=== PATIENT | male | born 1955 | race Caucasian/White ===

== ENCOUNTER 2020-09-24 11:12 | Outpatient (CLI) | payer MEDICARE, SELFPAY ==
--- NOTE | ~2020-09-24 | XR_ITS ---
EXAMINATION: HAND-LARS ARTHRITIS 3+VIEWS DATE: 09/24/2020 11:38 INDICATION: Right hand pain. TECHNIQUE: Posteroanterior, lateral, and oblique views of the left and of the right hands as well as a ballcatchers view of both hands were obtained. COMPARISON: None. FINDINGS: Normal alignment at the bilateral hands and wrists. Old healed fracture of the right fifth metacarpal . No other fractures identified. Mild polyarticular osteoarthritis involving the left distal radiouln ar and bilateral triscaphe, first carpometacarpal and multiple bilateral metacarpophalangeal and inte rphalangeal joints characterized by mild nonuniform joint space narrowing and/or small marginal osteo phytes. No erosions to suggest an inflammatory arthritis. Soft tissues are unremarkable. IMPRESSION: 1. Relatively symmetric, typical pattern of mild polyarticular osteoarthritis at the bilateral hands. Reviewed, dictated and finalized at location B. UET CHEF IMPRESSION: 1. Relatively symmetric, typical pattern of mild polyarticular osteoarthritis a t the bilateral hands.
== END 2020-09-24 11:13 | disposition home or self-care (01) ==
PROVIDERS: PCP Family Medicine; Visit Provider Physician Assistant Medical
DX: M19.041 Primary osteoarthritis, right hand (principal); M19.042 Primary osteoarthritis, left hand
CPT/HCPCS: 73130

== ENCOUNTER 2022-01-28 11:53 | Outpatient (CLI) | payer MEDICARE, SELFPAY ==
[2022-01-28 13:31] LABS: Basophils Absolute Auto 0.1 K/mm3 (0.0-0.1); Basophils Percent Auto 0.9 % (0.2-1.2); Eosinophils Absolute Auto 0.1 K/mm3 (0-0.3); Eosinophils Percent Auto 1.5 % (0-4.4); Hematocrit 47.1 % (42.0-52.0); Hemoglobin 15.1 g/dL (14.0-18.0); Immature Granulocyte Absolute 0.03 K/mm3 (0.00-0.031); Immature Granulocyte Percent A 0.4 % (0-0.5); Lymphocytes Percent Auto 26.9 % (18.3-44.2); Mean Corpuscular HGB Conc 32.1 g/dl (32-36); Mean Corpuscular Hemoglobin 31.7 pg (26-34); Mean Corpuscular Volume 98.7 fl (80-100); Mean Platelet Volume 9.2 fl (7.4-10.4); Monocytes Absolute Auto 0.6 K/mm3 (0.1-0.6); Monocytes Percent Auto 8.3 % (2.6-8.5); Neutrophils Absolute Auto 4.6 K/mm3 (1.3-6.7); Platelet Count Result 304 k/mm3 (150-375); Red Blood Count 4.77 M/mm3 (4.6-6.20); Red Cell Distribution Width 14.5 % (11.5-14.5); White Blood Count 7.4 K/mm3 (4.5-10.0)
[2022-01-28 13:42] LABS: Alanine Aminotransferase 26 U/L (6-50); Alkaline Phosphatase 54 U/L (38-126); Amylase 88 U/L (30-110); Anion Gap 6 mmol/L (8-16); Aspartate Amino Transferase 26 U/L (17-59); Bilirubin,Total 0.5 mg/dL (0.2-1.3); Blood Urea Nitrogen 14 mg/dL (9-20); Calcium 8.7 mg/dL (8.4-10.2); Carbon Dioxide 28 mmol/L (22-30); Chloride 108 mmol/L (98-107); Estimated Glomerular Filt Rate > 60; Glucose 110 mg/dL (65-110); Lipase 77 U/L (23-300); Potassium 4.1 mmol/L (3.4-5.0); Sodium 142 mmol/L (137-145)
[2022-01-28 13:57] LABS: Add Urine Microscopic? NO; Appearance Urine Clear (Clear); Bilirubin Urine Negative (Negative); Blood Urine Negative (Negative); Color Urine Yellow (Yellow); Glucose Urine UA Negative (Negative); Ketones Urine Negative (Negative); Leukocyte Esterase Ur Negative LEU/UL (Negative); Nitrate Urine Negative (Negative); Protein Urine Negative (Negative); Urobilinogen Urine 0.2 mg/dL (<2.0); pH Urine 5.5 (5.0-9.0)
== END 2022-01-28 11:54 | disposition home or self-care (01) ==
LOC: ANHLAB 11:58
PROVIDERS: PCP Family Medicine; Visit Provider Nurse Practitioner Family
DX: R19.7 Diarrhea, unspecified (principal)
CPT/HCPCS: 36415; 80053; 81003; 82150; 83690; 85025

== ENCOUNTER 2022-01-29 11:18 | Outpatient (CLI) | payer MEDICARE, SELFPAY ==
[2022-01-29 12:53] LABS: Toxigenic C. Diff NEGATIVE (NEGATIVE)
== END 2022-01-29 11:19 | disposition home or self-care (01) ==
LOC: ANHLAB 11:19
PROVIDERS: PCP Family Medicine; Visit Provider Nurse Practitioner Family
DX: R19.7 Diarrhea, unspecified (principal)
CPT/HCPCS: 87045; 87177; 87209; 87427; 87493

== ENCOUNTER 2022-04-11 18:12 | Emergency (ER) | payer OTHER, MEDICARE, SELFPAY ==
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
--- NOTE | ~2022-04-11 | XR_ITS ---
XR elbow LT min 3V 04/11/2022 18:56 INDICATION: Left elbow pain PROCEDURE: 4 views left elbow COMPARISON: No prior studies for comparison. FINDINGS: Fracture, dislocation or subluxation is not identified. No significant joint effusion. The soft tissues appear within normal limits. No foreign bodies are identified. IMPRESSION: 1: NO ACUTE BONE OR JOINT ABNORMALITY IDENTIFIED. Reviewed, dictated and finalized at location A.
--- NOTE | ~2022-04-11 | XR_ITS ---
XR finger 1st RT min 2V 04/11/2022 18:57 Indication: Right first finger pain. Procedure: 3 views left first finger Comparison: No prior studies for comparison. Findings: Polyarticular osteoarthritis. No acute fracture. Small radiodensities are identified ventra l to the distal phalanx on the lateral view, possibly foreign bodies. Impression: 1: Punctate radiodensities adjacent to the first distal phalanx, possibly foreign bodies. 2: Moderate polyarticular osteoarthritis. Reviewed, dictated and finalized at location A. Impression: 1: Punctate radiodensities adjacent to the first distal phalanx, possibly forei gn bodies. 2: Moderate polyarticular osteoarthritis.
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
[2022-04-11 18:25] VITALS: BP 150/94; PULSE 73; RESP 20; TEMP 37; O2SAT 99
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
[2022-04-11] MEDS: TETANUS,DIPHTHERIA,AC PERTUSSIS ADULT (0.5 ML) BOOSTRIX IM (18:55)
[2022-04-11 19:10] LABS: Basophils Absolute Auto 0.1 K/mm3 (0.0-0.1); Basophils Percent Auto 0.9 % (0.2-1.2); Eosinophils Absolute Auto 0.1 K/mm3 (0-0.3); Eosinophils Percent Auto 0.9 % (0-4.4); Hematocrit 46.3 % (42.0-52.0); Hemoglobin 14.7 g/dL (14.0-18.0); Immature Granulocyte Absolute 0.04 K/mm3 (0.00-0.031); Immature Granulocyte Percent A 0.5 % (0-0.5); Lymphocytes Percent Auto 26.1 % (18.3-44.2); Mean Corpuscular HGB Conc 31.7 g/dl (32-36); Mean Corpuscular Hemoglobin 30.7 pg (26-34); Mean Corpuscular Volume 96.7 fl (80-100); Mean Platelet Volume 8.7 fl (7.4-10.4); Monocytes Absolute Auto 0.7 K/mm3 (0.1-0.6); Monocytes Percent Auto 9.2 % (2.6-8.5); Neutrophils Absolute Auto 4.8 K/mm3 (1.3-6.7); Neutrophils Percent Auto 62.4 % (45.5-73.1); Platelet Count Result 296 k/mm3 (150-375); Red Blood Count 4.79 M/mm3 (4.6-6.20); Red Cell Distribution Width 14.1 % (11.5-14.5); White Blood Count 7.7 K/mm3 (4.5-10.0)
[2022-04-11 19:20] LABS: Alanine Aminotransferase 27 U/L (6-50); Albumin Level 4.3 g/dL (3.5-5.1); Alkaline Phosphatase 57 U/L (38-126); Anion Gap 11 mmol/L (8-16); Aspartate Amino Transferase 24 U/L (17-59); Bilirubin,Total 0.4 mg/dL (0.2-1.3); Blood Urea Nitrogen 18 mg/dL (9-20); Calcium 8.8 mg/dL (8.4-10.2); Carbon Dioxide 26 mmol/L (22-30); Chloride 106 mmol/L (98-107); Estimated Glomerular Filt Rate > 60; Glucose 151 mg/dL (65-110); Potassium 4.1 mmol/L (3.4-5.0); Sodium 143 mmol/L (137-145)
[2022-04-11 19:22] LABS: Ethanol < 10 mg/dL (<10); Partial Thromboplastin Time 26.4 SECONDS (22.3-36.8)
== END 2022-04-11 22:02 | disposition home or self-care (01) ==
PROVIDERS: Physician Assistant; Emergency Provider Emergency Medicine; PCP Family Medicine
DX: S09.90XA Unspecified injury of head, initial encounter (principal); S00.81XA Abrasion of other part of head, initial encounter; S41.102A Unspecified open wound of left upper arm, initial encounter; S81.802A Unspecified open wound, left lower leg, initial encounter; Z23 Encounter for immunization; E66.01 Morbid (severe) obesity due to excess calories; Z87.891 Personal history of nicotine dependence; Z79.82 Long term (current) use of aspirin; Z79.899 Other long term (current) drug therapy; M19.041 Primary osteoarthritis, right hand; V03.10XA Pedestrian on foot injured in collision with car, pick-up truck or van in traffic accident, initial encounter
CPT/HCPCS: 36415; 70450; 71260; 72125; 72129; 72132; 73080; 73140; 73564; 74177; 80053; 80307; 85025; 85610; 85730; 86850; 86900; 86901; 90471; 90715; 96374; 99284; J0131; Q9967

== ENCOUNTER 2022-08-17 08:23 | Outpatient (CLI) | payer MEDICARE, SELFPAY ==
--- NOTE | ~2022-08-17 | NM_ITS ---
EXAMINATION: NM dudley stress w perfusion DATE: 08/17/2022 11:28 INDICATION: Paroxysmal atrial fibrillation TECHNIQUE: Rest images were obtained following intravenous administration of 10.4 mCi Tc99m tetrofosm in (Myoview). The patient was infused intravenously with Lexiscan (Regadenoson). Then, 32.4 mCi Tc99m tetrofosmin (Myoview) was administered intravenously, and stress images were obtained. Data was ssuan nstructed into short axis and horizontal and vertical long axis SPECT images. Gated SPECT images were also obtained. COMPARISON: None. FINDINGS: There is no definite reversible or fixed perfusion abnormality to suggest ischemia or infar ction. There is normal left ventricular chamber size, wall motion and ejection fraction. Left ventr icular ejection fraction measures 55%. IMPRESSION: 1. Normal myocardial perfusion at rest and during stress. 2. Left ventricular ejection fraction measuring 55%. Reviewed, dictated and finalized at location B. [employer] DIRECTOR
--- NOTE | 2022-08-17 08:07 | EST_ITS ---
Patient Info Name: Emmanuel Lilly Age: 67 years : 1955 Gender: Male Ht: 72 in Wt: 290 lbs BSA: 2.64 m2 HR: 55 bpm BP: 154 / 88 mmHg Heart Rhythm: Sinus Rhythm Exam Date: 08/17/2022 9:16 AM Exam Location: [facility], [place] Stress Patient Status: Outpatient Admit Date: 08/17/2022 Staff Ordering Physician: Benton Rodriguez DO Attending Provider: Benton Rodriguez DO Exercise Technologist: Kelsie Moore CT Exercise Physician: Benton Rodriguez DO Exam Type: CA stress dudley w NM Study Info Indications I48.0 - Paroxysmal atrial fibrillation A regadenoson stress test was performed. Summary 1. 1. Negative lexiscan stress test for ischemic ST changes by ECG criteria. 2. 2. Baseline hypertension. 3. 3. Nuclear scan to follow and will be reported separately. Please correlate with it. 4. 4. Patient informed of the above results. Protocol: Lexiscan Stress ECG Details Stage: REST Duration (min): 2 min : 15 sec HR (bpm): 56 SBP (mmHg): 154 DBP (mmHg): 88 Stage: REST Duration (min): 9 min : 57 sec HR (bpm): 56 SBP (mmHg): 154 DBP (mmHg): 88 Stage: STAGE 1 Duration (min): 0 min : 59 sec HR (bpm): 68 SBP (mmHg): 199 DBP (mmHg): 101 Stage: RECOVERY Duration (min): 1 min : 0 sec HR (bpm): 70 SBP (mmHg): 199 DBP (mmHg): 101 Stage: RECOVERY Duration (min): 2 min : 0 sec HR (bpm): 71 SBP (mmHg): 199 DBP (mmHg): 101 Stage: RECOVERY Duration (min): 3 min : 0 sec HR (bpm): 69 SBP (mmHg): 199 DBP (mmHg): 101 Stage: RECOVERY Duration (min): 3 min : 25 sec HR (bpm): 67 SBP (mmHg): 157 DBP (mmHg): 95 Rest HR: 56 bpm Peak HR: 75 bpm Rest Sys BP: 154 mmHg Peak Sys BP: 199 mmHg Max Pred HR: 151 bpm % Max Pred HR: 50 % Target HR: 128 bpm Max RPP: 14,925 bpm*mmHg Termination Reason: Completed protocol Cardiac Symptoms: Shortness of breath Total Time: 1 min : 0 sec Rest Massey BP: 88 mmHg Peak Massey BP: 101 mmHg Total Dose: 0.4 mg Resting ECG Sinus bradycardia, first degree AV block, RBBB, PVC's. Stress ECG No ST changes. Arrhythmias None. Report Signatures
== END 2022-08-17 08:24 | disposition home or self-care (01) ==
PROVIDERS: PCP Family Medicine; Visit Provider Internal Medicine Cardiovascular Disease
DX: I48.0 Paroxysmal atrial fibrillation (principal)
CPT/HCPCS: 78452; 93017; A9502; J2785

== ENCOUNTER 2024-05-03 11:14 | Outpatient (CLI) | payer MEDICARE, SELFPAY ==
--- NOTE | ~2024-05-03 | XR_ITS ---
EXAMINATION: XR shoulder RT min 2V DATE: 05/03/2024 11:37 INDICATION: Right shoulder pain. TECHNIQUE: 5 views of right shoulder were obtained. COMPARISON: None. FINDINGS: Alignment is normal. No fracture. There is mild osteoarthritis of glenohumeral joint. There is mild osteoarthritis of acromioclavicular joint with loose body. There are changes of anterior fus ion procedure in cervical spine. IMPRESSION: 1. Polyarticular osteoarthritis. Reviewed, dictated and finalized at location A.
== END 2024-05-03 11:15 | disposition home or self-care (01) ==
PROVIDERS: PCP Family Medicine; Visit Provider Physician Assistant Medical
DX: M19.011 Primary osteoarthritis, right shoulder (principal)
CPT/HCPCS: 73030